=== PATIENT | female | born 1995 | race Two or more races ===

== ENCOUNTER 2017-04-07 09:40 | Emergency (ER) | payer MEDICAID, OTHER ==
[~2017-04-07] VITALS: Ht 167.6 cm; Wt 127.0 kg
[2017-04-07] MEDS ORDERED: SODIUM CHLORIDE 0.9% 1,000 ML IVB ONE (10:00)
[2017-04-07 10:35] LABS: Basophils # (auto) 0 uL; Basophils % (auto) 0.3 % (0.0-2.0); CONDITION Y; DEFINITIVE SEE PRINTOUT; Eosinophils # (auto) 0 uL; Eosinophils % (auto) 0.7 % (0.0-7.0); Hematocrit 37.7 % (36.0-46.0); Hemoglobin 11.9 g/dL (12.2-16.2); Lymphocytes # (auto) 2.6 uL; Lymphocytes % (auto) 38.9 % (10.0-50.0); Mean Corpuscular Hemoglobin 22.7 pg (28.0-32.0); Mean Corpuscular Hgb Conc. 31.5 g/dL (32.0-36.0); Monocytes # (auto) 0.3 uL; Monocytes % (auto) 4.2 % (0.0-12.0); Neutrophils # (auto) 3.7 uL; Neutrophils % (auto) 55.9 % (37.0-80.0); Platelet Count (auto) 423 10^3/uL (140-450); Red Cell Distribution Width 19.2 % (11.6-16.0); White Blood Cell 6.6 10^3/uL (4.4-10.8)
[2017-04-07 11:01] LABS: Albumin 3.7 g/dL (3.4-5.0); BUN/Creatinine Ratio 15.9; Bilirubin, Total 0.1 mg/dL (0.2-1.0); Calcium 8.6 mg/dL (8.5-10.1); Magnesium 2.4 mg/dL (1.6-2.6); Potassium 3.9 mmol/L (3.5-5.1); Total Protein 8.1 g/dL (6.4-8.2)
[2017-04-07 11:13] LABS: Acetaminophen < 2.0 ug/mL (10-30); Salicylate < 1.7 mg/dL (2.8-20.0)
[2017-04-07 11:27] LABS: Urine RBC None Seen /hpf (0 - 4)
[2017-04-07 11:40] LABS: Urine Bilirubin Negative (Negative); Urine Blood Negative /uL (Negative); Urine Color Yellow (Yellow); Urine Glucose Normal (Normal); Urine Ketone Negative (Negative); Urine Nitrite Negative (Negative); Urine Squamous Epithelial Cell FEW /hpf (<5); Urine Urobilinogen Normal (Negative); Urine pH 5.5 (5.0-8.0)
[2017-04-07] MEDS ORDERED: SODIUM CHLORIDE 0.9% 1,000 ML IV ONE (15:45)
[2017-04-08] MEDS ORDERED: ACETAMINOPHEN 325 MG TAB PO ONE (23:45)
[2017-04-09] MEDS ORDERED: LEVOTHYROXINE SODIUM 50 MCG TAB PO ONE (10:00)
[2017-04-09 22:14] VITALS: BP 122/86
== END 2017-04-09 22:18 | disposition short-term general hospital (02) ==
LOC: EDBD 09:40 → ER 09:40
DX: F32.9 Major depressive disorder, single episode, unspecified (principal); R41.82 Altered mental status, unspecified; E66.01 Morbid (severe) obesity due to excess calories; Z68.42 Body mass index [BMI] 45.0-49.9, adult; F10.10 Alcohol abuse, uncomplicated; T14.91 Suicide attempt
CPT/HCPCS: 36415; 51702; 71010; 80053; 80307; 80320; 80329; 81001; 83735; 84443; 84702; 85025; 93005; 94761; 96360